=== PATIENT | male | born 1970 | race Caucasian/White ===

== ENCOUNTER 2016-11-24 10:35 | Emergency (ER) | payer OTHER ==
[~2016-11-24] VITALS: Ht 193 cm; Wt 242.6 kg
[~2016-11-24 10:35] MED LIST: ANTIFUNGAL15 G1 TP; ASCORBIC ACID100 MG PO; ASPIRIN325 MG PO; ASPIRIN81 M2 PO; ATORVASTATIN CA40 MG PO; BACLOFEN10 MG PO; BACTRIM,SEPT1 TABLET PO; CLEOCIN300 MG PO; CYMBALTA60 MG PO; DAILY VALUE1 EACH PO; DAILY VITE1 EAC1 PO; DOXYCYCLINE HY100 MG PO; ENDOCET 5-3251 EACH PO; FENOFIBRATE134 M1 PO; FLORASTOR250 MG PO; GABAPENTIN600 MG PO; GLUCOMETER MC; HYZAAR 100-21 TABLET PO; INSULIN PUMP SCCONT; KEFLEX500 MG PO; KLONOPIN1 MG PO; LEVEMIR FL100 UNIT/1 SC; LEVEMIR100 UNIT/2 SC; LEVOFLOXACIN750 MG PO; LIPITOR40 MG PO; LISINOPRIL5 MG PO; LO-DOSE ASPIRIN81 M1 PO; LOPRESSOR25 MG PO; LOVAZA1 GM PO; MELOXICAM7.5 MG PO; METOPROLOL TART25 MG PO; MOBIC15 MG PO; MOBIC7.5 MG PO; MOTRIN600 MG PO; MOTRIN800 MG PO; NEURONTIN300 MG PO; NEURONTIN600 MG PO; NORCO 5/3251 TABLET PO; NORVASC5 MG PO; NOVOLOG 10100 UNITS/ SC; NOVOLOG PE100 UNITS/ SC; NYSTATIN15 GM TP; OMEPRAZOLE40 M1 PO; PERCOCET 7.5-51 EACH; PRINIVIL5 MG PO; REQUIP1 MG PO; REQUIP2 MG PO; TOPAMAX100 MG PO; TRICOR145 MG PO; ULTRAM50 MG PO; VIBRAMYCIN100 MG PO; VICODIN 5-5001 EACH PO; VICODIN,LORT1 TABLET PO; ZESTRIL,PRINIVI10 MG PO; ZESTRIL40 MG PO; [UNRECOGNIZED DRUG - SUPPLY] MC
[2016-11-24 12:02] LABS: EOSINOPHIL (%) 1.9 % (0-5); EOSINOPHIL COUNT 0.1 K/uL (0-0.3); HEMATOCRIT 44.4 % (38.0-50.0); IMMATURE GRANULOCYTE (%) 0.2 % (0.0-0.7); IMMATURE GRANULOCYTE COUNT 0.1 K/uL; LYMPHOCYTE COUNT 1.2 K/uL (1.0-2.8); MCH 28.4 PG (29.0-34.0); MCV 83.6 FL (86-99); MEAN PLAT.VOLUME 10.8 uM^3 (9.0-12.4); MONOCYTE COUNT 0.3 K/uL (0-0.8); NEUTROPHIL (%) 66.2 % (45-76); NEUTROPHIL COUNT 3.2 K/uL (1.8-6.4); PLATELET COUNT 191 K/uL (156-360); RBC DIS.WIDTH-CV 13.7 % (11.8-14.6); RED BLOOD COUNT 5.31 M/uL (4.00-5.50); WHITE BLOOD COUNT 4.9 K/uL (4.1-10.2)
[2016-11-24 12:16] LABS: CHLORIDE 101 mEq/L (99-109); POTASSIUM 4.3 mEq/L (3.7-5.4); SODIUM 138 mEq/L (136-147)
[2016-11-24 12:19] LABS: GLUCOSE 278 mg/dL (70-99)
[2016-11-24 12:20] LABS: ANION GAP 10 MEQ/L (2-14); TOTAL BILIRUBIN 0.6 mg/dL (0.0-1.0)
[2016-11-24 12:22] LABS: ALKALINE PHOSPHATASE 68 IU/L (3-129); GFR ESTIMATE (CALCULATED) > 59 mL/min/
[2016-11-24 12:23] LABS: UREA NITROGEN (BUN) 16 mg/dL (9-23)
[2016-11-24 19:17] VITALS: BP 120/84
== END 2016-11-24 19:28 | disposition home or self-care (01) ==
LOC: EME 10:35
PROVIDERS: Physician Assistant
DX: L03.311 Cellulitis of abdominal wall (principal); E11.65 Type 2 diabetes mellitus with hyperglycemia; Z96.41 Presence of insulin pump (external) (internal); I10 Essential (primary) hypertension; K21.9 Gastro-esophageal reflux disease without esophagitis; Z98.1 Arthrodesis status; Z86.14 Personal history of Methicillin resistant Staphylococcus aureus infection; Z79.82 Long term (current) use of aspirin
CPT/HCPCS: 76705; 80053; 83605; 85025; 87040; 87801; 99281; 99285; J3370; J7120

== ENCOUNTER 2017-05-26 09:29 | Inpatient (IN) | payer OTHER ==
[~2017-05-26] VITALS: Ht 190.5 cm; Wt 256.0 kg
[2017-05-26] MEDS ORDERED: GABAPENTIN800 MG PO (10:18)
[2017-05-26] MEDS ORDERED: ATORVASTATIN CA80 MG PO (10:18)
[2017-05-26] MEDS ORDERED: MIRAPEX0.5 MG PO (10:19)
[2017-05-26] MEDS ORDERED: BACTRIM,SEPT1 TABLET PO (10:20)
[2017-05-26] MEDS ORDERED: SPIRONOLACTONE25 MG PO (10:20)
[2017-05-26] MEDS ORDERED: INSULIN PUMP MC (10:28)
[2017-05-26 11:09] LABS: HEMATOCRIT 46.1 % (38.0-50.0); MCH 27.9 PG (29.0-34.0); MCHC 32.5 G/DL (30.0-36.0); MCV 85.7 FL (86-99); MEAN PLAT.VOLUME 11.4 uM^3 (9.0-12.4); PLATELET COUNT 191 K/uL (156-360); RBC DIS.WIDTH-CV 14.4 % (11.8-14.6); RBC DIS.WIDTH-SD 44.5 % (39-53); RED BLOOD COUNT 5.38 M/uL (4.00-5.50); WHITE BLOOD COUNT 5.8 K/uL (4.1-10.2)
[2017-05-26 11:12] LABS: CHLORIDE 98 mEq/L (99-109); POTASSIUM 4.1 mEq/L (3.7-5.4); SODIUM 134 mEq/L (136-147)
[2017-05-26 11:14] LABS: GLUCOSE 357 mg/dL (70-99)
[2017-05-26 11:15] LABS: ANION GAP 12 MEQ/L (2-14)
[2017-05-26 11:18] LABS: GFR ESTIMATE (CALCULATED) > 59 mL/min/
[2017-05-26 11:19] LABS: UREA NITROGEN (BUN) 13 mg/dL (9-23)
[2017-05-26] MEDS ORDERED: PROVENTIL HFA6.7 GM IH (13:35)
[2017-05-26] MEDS ORDERED: INSULIN PUMP SC (13:40)
[2017-05-26] MEDS ORDERED: OMEPRAZOLE40 M1 PO (13:41)
[2017-05-26] MEDS ORDERED: KENALOG,ARISTOC80 GM TP (13:45)
[2017-05-26] MEDS ORDERED: HUMULIN R500 UNITS/ SC (13:48)
[2017-05-26 14:40] VITALS: BP 125/77
[2017-05-26 16:30] LABS: POINT-OF-CARE METER ID UU14174225
[2017-05-26 19:50] VITALS: BP 137/87
[2017-05-26 21:11] LABS: POINT-OF-CARE METER ID UU13113717; POINT-OF-CARE USER ID 610211320
[2017-05-26 23:46] VITALS: BP 112/53
[2017-05-27 03:28] VITALS: BP 137/78
[2017-05-27 06:46] LABS: ANION GAP 8 MEQ/L (2-14); CHLORIDE 97 MEQ/L (99-109); GFR ESTIMATE (CALCULATED) > 59 mL/min/; GLUCOSE 219 mg/dL (70-99); POTASSIUM 4.1 MEQ/L (3.7-5.4); SAMPLE HEMOLYSIS CHECK 0; SAMPLE ICTERIC CHECK 0; SAMPLE LIPEMIA CHECK 0; SODIUM 135 MEQ/L (136-147); UREA NITROGEN (BUN) 12 mg/dL (9-23)
[2017-05-27 06:56] LABS: HEMATOCRIT 47.3 % (38.0-50.0); MCH 28.6 PG (29.0-34.0); MCHC 33.6 G/DL (30.0-36.0); MCV 85.2 FL (86-99); RBC DIS.WIDTH-CV 14.6 % (11.8-14.6); RBC DIS.WIDTH-SD 44.9 % (39-53); RED BLOOD COUNT 5.55 M/uL (4.00-5.50); WHITE BLOOD COUNT 5.2 K/uL (4.1-10.2)
[2017-05-27 07:49] LABS: MEAN PLAT.VOLUME 12.1 uM^3 (9.0-12.4); PLAT.SUFFICIENCY ADEQUATE; PLATELET COUNT 140 K/uL (156-360)
[2017-05-27 07:56] VITALS: BP 142/76
[2017-05-27 12:08] VITALS: BP 124/74
[2017-05-27 15:05] LABS: METH RESISTANT S AUREUS PCR NEGATIVE (NEGATIVE)
[2017-05-27 15:06] LABS: PROBE CHECK PASS; SPECIMEN PROCESSING CONTROL PASS
[2017-05-27 16:09] VITALS: BP 125/66
[2017-05-27 20:41] VITALS: BP 110/73
[2017-05-27 21:51] LABS: POINT-OF-CARE METER ID UU14174225
[2017-05-27 23:51] VITALS: BP 146/96
[2017-05-28 03:42] VITALS: BP 120/86
[2017-05-28 06:48] LABS: HEMATOCRIT 45.6 % (38.0-50.0); MCH 28.8 PG (29.0-34.0); MCHC 33.1 G/DL (30.0-36.0); MCV 86.9 FL (86-99); PLATELET COUNT 164 K/uL (156-360); RBC DIS.WIDTH-CV 14.6 % (11.8-14.6); RED BLOOD COUNT 5.25 M/uL (4.00-5.50); WHITE BLOOD COUNT 5.5 K/uL (4.1-10.2)
[2017-05-28 07:06] LABS: ANION GAP 11 MEQ/L (2-14); CHLORIDE 99 MEQ/L (99-109); POTASSIUM 3.8 MEQ/L (3.7-5.4); SAMPLE HEMOLYSIS CHECK 0; SAMPLE ICTERIC CHECK 0; SAMPLE LIPEMIA CHECK 0; SODIUM 137 MEQ/L (136-147)
[2017-05-28 07:20] LABS: GFR ESTIMATE (CALCULATED) > 59 mL/min/; UREA NITROGEN (BUN) 11 mg/dL (9-23)
[2017-05-28 07:23] LABS: GLUCOSE 108 mg/dL (70-99)
[2017-05-28 08:47] VITALS: BP 153/87
[2017-05-28 13:44] VITALS: BP 146/80
[2017-05-28 16:30] VITALS: BP 118/81
[2017-05-28 22:11] LABS: POINT-OF-CARE METER ID UU14174225
[2017-05-28 23:38] VITALS: BP 128/93
[2017-05-29 08:00] VITALS: BP 139/80
[2017-05-29 08:00] LABS: POINT-OF-CARE METER ID UU14174225
[2017-05-29 11:59] LABS: POINT-OF-CARE METER ID UU14174225
[2017-05-29 15:35] VITALS: BP 117/67
[2017-05-29] MEDS ORDERED: FUROSEMIDE40 MG PO (15:49)
[2017-05-30 01:00] VITALS: BP 126/78
[2017-05-30 08:08] VITALS: BP 130/91
[2017-05-30 08:53] LABS: POINT-OF-CARE METER ID UU14174225
[2017-05-30] MEDS ORDERED: CEPHALEXIN500 MG PO (12:38)
[2017-05-30 15:58] VITALS: BP 118/67
[2017-05-30 23:40] VITALS: BP 143/65
[2017-05-31 06:18] LABS: HEMATOCRIT 49.2 % (38.0-50.0); MCH 27.3 PG (29.0-34.0); MCHC 31.5 G/DL (30.0-36.0); MCV 86.8 FL (86-99); MEAN PLAT.VOLUME 10.6 uM^3 (9.0-12.4); PLATELET COUNT 188 K/uL (156-360); RBC DIS.WIDTH-CV 14.6 % (11.8-14.6); RBC DIS.WIDTH-SD 46.4 % (39-53); RED BLOOD COUNT 5.67 M/uL (4.00-5.50); WHITE BLOOD COUNT 5.2 K/uL (4.1-10.2)
[2017-05-31 07:56] LABS: ANION GAP 8 MEQ/L (2-14); CHLORIDE 98 MEQ/L (99-109); GFR ESTIMATE (CALCULATED) > 59 mL/min/; POTASSIUM 3.7 MEQ/L (3.7-5.4); SAMPLE HEMOLYSIS CHECK 0; SAMPLE ICTERIC CHECK 0; SAMPLE LIPEMIA CHECK 0; SODIUM 140 MEQ/L (136-147); UREA NITROGEN (BUN) 13 mg/dL (9-23)
[2017-05-31 07:58] LABS: GLUCOSE 72 mg/dL (70-99)
[2017-05-31 08:42] VITALS: BP 152/95
== END 2017-05-31 10:56 | disposition home health service (06) | DRG 603 ==
LOC: EME 09:29 → 5SOUTH 13:25 → EDOF 13:25 → ENRESERV 13:39 → 5SOUTH 15:58
PROVIDERS: Hospitalist; Internal Medicine; Nurse Practitioner Family
PROC: 5A09357 Assistance with Respiratory Ventilation, Less than 24 Consecutive Hours, Continuous Positive Airway Pressure (ICD-10-PCS; principal; 2017-05-26)
DX: L03.115 Cellulitis of right lower limb (principal); Z68.45 Body mass index [BMI] 70 or greater, adult; I42.9 Cardiomyopathy, unspecified; L97.811 Non-pressure chronic ulcer of other part of right lower leg limited to breakdown of skin; E87.2 Acidosis; L03.116 Cellulitis of left lower limb; E66.01 Morbid (severe) obesity due to excess calories; F17.220 Nicotine dependence, chewing tobacco, uncomplicated; Z96.41 Presence of insulin pump (external) (internal); K21.9 Gastro-esophageal reflux disease without esophagitis; E11.65 Type 2 diabetes mellitus with hyperglycemia; I89.0 Lymphedema, not elsewhere classified; D75.1 Secondary polycythemia; E11.622 Type 2 diabetes mellitus with other skin ulcer; I10 Essential (primary) hypertension; E78.5 Hyperlipidemia, unspecified; G47.33 Obstructive sleep apnea (adult) (pediatric); Z89.421 Acquired absence of other right toe(s); Z79.82 Long term (current) use of aspirin; Z79.4 Long term (current) use of insulin; Z86.718 Personal history of other venous thrombosis and embolism; Z91.041 Radiographic dye allergy status; Z83.3 Family history of diabetes mellitus; Z82.49 Family history of ischemic heart disease and other diseases of the circulatory system
CPT/HCPCS: 73630; 80048; 82948; 83605; 85027; 87040; 87641; 93306; 93970; 94660; 94799; 99202; 99281; 99284; A6212; J0696; J1644; J1940; J2270; J3370; J7030; J7040; J7050

== ENCOUNTER 2017-08-19 15:48 | Inpatient (IN) | payer OTHER ==
[~2017-08-19] VITALS: Ht 182.9 cm; Wt 255.0 kg
[~2017-08-19 15:48] MED LIST changes: +ATORVASTATIN CA80 MG PO; +CEPHALEXIN500 MG PO; +FUROSEMIDE40 MG PO; +GABAPENTIN800 MG PO; +HUMULIN R500 UNITS/ SC; +INSULIN PUMP MC; +INSULIN PUMP SC; +KENALOG,ARISTOC80 GM TP; +MIRAPEX0.5 MG PO; +PROVENTIL HFA6.7 GM IH; +SPIRONOLACTONE25 MG PO
[2017-08-19] MEDS ORDERED: AMOX TR-K CLV1 EAC4 PO (16:51)
[2017-08-19] MEDS ORDERED: OXYCODONE-APAP1 EACH PO (17:00)
[2017-08-19] MEDS ORDERED: KENALOG,ARISTOC80 G1 TP (17:02)
[2017-08-19 17:21] LABS: EOSINOPHIL (%) 1.3 % (0-5); EOSINOPHIL COUNT 0.1 K/uL (0-0.3); HEMATOCRIT 43.5 % (38.0-50.0); IMMATURE GRANULOCYTE (%) 0.2 % (0.0-0.7); INSTRUMENT ABS NEUTROPHIL CT 6.1 K/uL; LYMPHOCYTE COUNT 1.6 K/uL (1.0-2.8); MCH 27.1 PG (29.0-34.0); MCHC 31.7 G/DL (30.0-36.0); MCV 85.3 FL (86-99); MONOCYTE (%) 6.4 % (3-12); MONOCYTE COUNT 0.5 K/uL (0-0.8); NEUTROPHIL (%) 73.2 % (45-76); NEUTROPHIL COUNT 6.1 K/uL (1.8-6.4); PLATELET COUNT 211 K/uL (156-360); RBC DIS.WIDTH-CV 14.4 % (11.8-14.6); RBC DIS.WIDTH-SD 44.9 % (39-53); WHITE BLOOD COUNT 8.4 K/uL (4.1-10.2)
[2017-08-19 17:30] LABS: CHLORIDE 99 mEq/L (99-109); POTASSIUM 4.3 mEq/L (3.7-5.4); SODIUM 135 mEq/L (136-147)
[2017-08-19 17:31] LABS: GLUCOSE 237 mg/dL (70-99)
[2017-08-19 17:33] LABS: ANION GAP 13 MEQ/L (2-14)
[2017-08-19 17:35] LABS: GFR ESTIMATE (CALCULATED) > 59 mL/min/
[2017-08-19 17:36] LABS: UREA NITROGEN (BUN) 19 mg/dL (9-23)
[2017-08-19] MEDS ORDERED: COZAAR100 MG PO (19:16)
[2017-08-19] MEDS ORDERED: MIRAPEX1 MG PO (19:17)
[2017-08-19] MEDS ORDERED: TYLENOL EXTRA500 MG PO (19:20)
[2017-08-19] MEDS ORDERED: ADVIL200 MG PO (19:20)
[2017-08-19] MEDS ORDERED: ALEVE220 MG PO (19:20)
[2017-08-19] MEDS ORDERED: ASCORBIC ACID500 M3 PO (19:20)
[2017-08-19] MEDS ORDERED: FLONASE16 G1 BOTH NARES (19:21)
[2017-08-19 22:22] VITALS: BP 138/82
[2017-08-19 23:27] VITALS: BP 147/83
[2017-08-20 00:16] LABS: POINT-OF-CARE METER ID UU14208753
[2017-08-20 03:34] VITALS: BP 132/79
[2017-08-20 06:26] LABS: HEMATOCRIT 43.1 % (38.0-50.0); MCH 26.5 PG (29.0-34.0); MCHC 31.1 G/DL (30.0-36.0); MCV 85.2 FL (86-99); MEAN PLAT.VOLUME 10.2 uM^3 (9.0-12.4); PLATELET COUNT 202 K/uL (156-360); RBC DIS.WIDTH-CV 14.7 % (11.8-14.6); RBC DIS.WIDTH-SD 45.3 % (39-53); RED BLOOD COUNT 5.06 M/uL (4.00-5.50); WHITE BLOOD COUNT 6.4 K/uL (4.1-10.2)
[2017-08-20 06:28] LABS: POINT-OF-CARE METER ID UU14117124
[2017-08-20 07:09] LABS: ANION GAP 9 MEQ/L (2-14); CHLORIDE 100 MEQ/L (99-109); GFR ESTIMATE (CALCULATED) > 59 mL/min/; GLUCOSE 156 mg/dL (70-99); POTASSIUM 3.9 MEQ/L (3.7-5.4); SAMPLE HEMOLYSIS CHECK 0; SAMPLE ICTERIC CHECK 0; SAMPLE LIPEMIA CHECK 0; SODIUM 138 MEQ/L (136-147); UREA NITROGEN (BUN) 20 mg/dL (9-23)
[2017-08-20 08:31] VITALS: BP 112/71
[2017-08-20 11:59] LABS: POINT-OF-CARE METER ID UU14117124
[2017-08-20 13:55] VITALS: BP 125/58
[2017-08-20 16:32] VITALS: BP 108/70
[2017-08-20 16:50] LABS: POINT-OF-CARE METER ID UU14188577
[2017-08-20 17:04] LABS: Estimated Average Glucose 249 mg/dL (70-123); HEMOGLOBIN A1c (GLYCOHEMOGLOB) 10.3 % HGB (Below 5.7)
[2017-08-20 22:02] LABS: POINT-OF-CARE METER ID UU14188577
[2017-08-21 00:10] VITALS: BP 142/86
[2017-08-21 06:05] LABS: HEMATOCRIT 43.2 % (38.0-50.0); MCH 26.4 PG (29.0-34.0); MCHC 30.8 G/DL (30.0-36.0); MCV 85.7 FL (86-99); MEAN PLAT.VOLUME 9.9 uM^3 (9.0-12.4); PLATELET COUNT 194 K/uL (156-360); RBC DIS.WIDTH-CV 14.6 % (11.8-14.6); RBC DIS.WIDTH-SD 44.9 % (39-53); RED BLOOD COUNT 5.04 M/uL (4.00-5.50); WHITE BLOOD COUNT 6.7 K/uL (4.1-10.2)
[2017-08-21 07:00] LABS: POINT-OF-CARE METER ID UU14117124
[2017-08-21 07:49] VITALS: BP 138/91
[2017-08-21 09:49] LABS: POINT-OF-CARE METER ID UU14117124
[2017-08-21 12:21] LABS: POINT-OF-CARE METER ID UU14117124
[2017-08-21 14:31] LABS: POINT-OF-CARE METER ID UU14117124
[2017-08-21 15:49] VITALS: BP 118/71
[2017-08-21 16:21] LABS: POINT-OF-CARE METER ID UU14117124
[2017-08-21 21:58] LABS: POINT-OF-CARE METER ID UU14117124
[2017-08-21 23:31] VITALS: BP 142/79
[2017-08-22 04:10] LABS: POINT-OF-CARE METER ID UU14188577
[2017-08-22 04:42] LABS: POINT-OF-CARE METER ID UU14188577
[2017-08-22 05:09] LABS: POINT-OF-CARE METER ID UU14188577
[2017-08-22 06:21] LABS: POINT-OF-CARE METER ID UU14188577
[2017-08-22 08:38] VITALS: BP 138/81
[2017-08-22] MEDS ORDERED: KEFLEX500 MG PO (10:27)
[2017-08-22 12:12] LABS: POINT-OF-CARE METER ID UU14149397
[2017-08-22 13:09] LABS: POINT-OF-CARE METER ID UU14208753
[2017-08-22 14:11] LABS: POINT-OF-CARE METER ID UU14208753
== END 2017-08-22 14:42 | disposition home or self-care (01) | DRG 603 ==
LOC: EME 15:48 → 3EAST 20:19 → EDOF 20:19 → ENRESERV 20:23 → 3EAST 21:58
PROVIDERS: Hospitalist; Internal Medicine; Physician Assistant
DX: L03.115 Cellulitis of right lower limb (principal); L97.811 Non-pressure chronic ulcer of other part of right lower leg limited to breakdown of skin; Z68.45 Body mass index [BMI] 70 or greater, adult; L03.116 Cellulitis of left lower limb; E66.01 Morbid (severe) obesity due to excess calories; E11.621 Type 2 diabetes mellitus with foot ulcer; G47.33 Obstructive sleep apnea (adult) (pediatric); I11.0 Hypertensive heart disease with heart failure; I50.9 Heart failure, unspecified; E11.65 Type 2 diabetes mellitus with hyperglycemia; L97.521 Non-pressure chronic ulcer of other part of left foot limited to breakdown of skin; E78.5 Hyperlipidemia, unspecified; I87.2 Venous insufficiency (chronic) (peripheral); I89.0 Lymphedema, not elsewhere classified; K21.9 Gastro-esophageal reflux disease without esophagitis; F17.220 Nicotine dependence, chewing tobacco, uncomplicated; Z79.4 Long term (current) use of insulin; Z96.41 Presence of insulin pump (external) (internal); Z79.82 Long term (current) use of aspirin; Z89.421 Acquired absence of other right toe(s); Z91.041 Radiographic dye allergy status; Z79.51 Long term (current) use of inhaled steroids; Z98.1 Arthrodesis status; Z83.3 Family history of diabetes mellitus; Z82.49 Family history of ischemic heart disease and other diseases of the circulatory system
CPT/HCPCS: 80048; 82948; 83036; 83605; 85025; 85027; 87040; 87070; 87075; 87205; 93970; 99202; 99281; 99285; J0696; J1650; J3010; J7030

== ENCOUNTER 2017-09-09 10:43 | Inpatient (IN) | payer OTHER ==
[~2017-09-09] VITALS: Ht 190.5 cm; Wt 300.0 kg
[~2017-09-09 10:43] MED LIST changes: +ADVIL200 MG PO; +ALEVE220 MG PO; +AMOX TR-K CLV1 EAC4 PO; +ASCORBIC ACID500 M3 PO; +COZAAR100 MG PO; +FLONASE16 G1 BOTH NARES; -INSULIN PUMP SC; +KENALOG,ARISTOC80 G1 TP; +MIRAPEX1 MG PO; +OXYCODONE-APAP1 EACH PO; +TYLENOL EXTRA500 MG PO
[2017-09-09 11:49] LABS: HEMATOCRIT 42.7 % (38.0-50.0); MCH 26.7 PG (29.0-34.0); MCHC 31.1 G/DL (30.0-36.0); MCV 85.6 FL (86-99); MEAN PLAT.VOLUME 10.5 uM^3 (9.0-12.4); PLATELET COUNT 173 K/uL (156-360); RBC DIS.WIDTH-CV 14.6 % (11.8-14.6); RBC DIS.WIDTH-SD 45.5 % (39-53); RED BLOOD COUNT 4.99 M/uL (4.00-5.50)
[2017-09-09 11:59] LABS: CHLORIDE 99 mEq/L (99-109); POTASSIUM 4.2 mEq/L (3.7-5.4); SODIUM 136 mEq/L (136-147)
[2017-09-09 12:01] LABS: GLUCOSE 260 mg/dL (70-99)
[2017-09-09 12:03] LABS: ANION GAP 11 MEQ/L (2-14); TOTAL BILIRUBIN 0.5 mg/dL (0.0-1.0)
[2017-09-09 12:05] LABS: ALKALINE PHOSPHATASE 71 IU/L (3-129); GFR ESTIMATE (CALCULATED) > 59 mL/min/ (58.99-99999)
[2017-09-09 12:06] LABS: UREA NITROGEN (BUN) 13 mg/dL (9-23)
[2017-09-09 14:54] LABS: INTER. NORMALIZED RATIO 1.1; PROTHROMBIN TIME 12.5 SEC (10.2-12.9)
[2017-09-09] MEDS ORDERED: METOPROLOL SUCC50 MG PO (17:07)
[2017-09-09 22:02] LABS: POINT-OF-CARE METER ID UU13113717
[2017-09-10 00:05] VITALS: BP 140/82
[2017-09-10 03:53] VITALS: BP 147/86
[2017-09-10 06:49] LABS: EOSINOPHIL (%) 2.3 % (0-5); EOSINOPHIL COUNT 0.1 K/uL (0-0.3); HEMATOCRIT 43.3 % (38.0-50.0); IMMATURE GRANULOCYTE (%) 0.3 % (0.0-0.7); INSTRUMENT ABS NEUTROPHIL CT 4.1 K/uL; LYMPHOCYTE COUNT 1.2 K/uL (1.0-2.8); MCH 25.7 PG (29.0-34.0); MCHC 29.8 G/DL (30.0-36.0); MCV 86.4 FL (86-99); MEAN PLAT.VOLUME 9.9 uM^3 (9.0-12.4); MONOCYTE (%) 8.1 % (3-12); MONOCYTE COUNT 0.5 K/uL (0-0.8); NEUTROPHIL (%) 68.2 % (45-76); NEUTROPHIL COUNT 4.1 K/uL (1.8-6.4); PLATELET COUNT 197 K/uL (156-360); RBC DIS.WIDTH-CV 14.8 % (11.8-14.6); RBC DIS.WIDTH-SD 46.7 % (39-53); RED BLOOD COUNT 5.01 M/uL (4.00-5.50)
[2017-09-10 07:41] LABS: ANION GAP 6 MEQ/L (2-14); CHLORIDE 101 MEQ/L (99-109); GFR ESTIMATE (CALCULATED) > 59 mL/min/ (58.99-99999); POTASSIUM 4.5 MEQ/L (3.7-5.4); SAMPLE HEMOLYSIS CHECK 0; SAMPLE ICTERIC CHECK 0; SAMPLE LIPEMIA CHECK 0; SODIUM 142 MEQ/L (136-147); UREA NITROGEN (BUN) 13 mg/dL (9-23)
[2017-09-10 07:45] LABS: GLUCOSE 108 mg/dL (70-99)
[2017-09-10 07:47] VITALS: BP 151/87
[2017-09-10 07:54] LABS: POINT-OF-CARE METER ID UU13113717
[2017-09-10 11:14] LABS: POINT-OF-CARE METER ID UU13113717
[2017-09-10 11:47] VITALS: BP 146/92
[2017-09-10 16:11] VITALS: BP 112/65
[2017-09-10 17:39] LABS: POINT-OF-CARE METER ID UU13113717
[2017-09-10 19:38] VITALS: BP 113/64
[2017-09-10 20:40] LABS: POINT-OF-CARE METER ID UU13113717
[2017-09-11 00:28] VITALS: BP 125/73
[2017-09-11 03:33] VITALS: BP 138/77
[2017-09-11 06:41] LABS: HEMATOCRIT 43.2 % (38.0-50.0); MCH 26.1 PG (29.0-34.0); MCHC 30.1 G/DL (30.0-36.0); MCV 86.6 FL (86-99); MEAN PLAT.VOLUME 10.3 uM^3 (9.0-12.4); PLATELET COUNT 201 K/uL (156-360); RBC DIS.WIDTH-CV 14.8 % (11.8-14.6); RBC DIS.WIDTH-SD 47.3 % (39-53); RED BLOOD COUNT 4.99 M/uL (4.00-5.50); WHITE BLOOD COUNT 6.4 K/uL (4.1-10.2)
[2017-09-11 06:55] LABS: ANION GAP 5 MEQ/L (2-14); CHLORIDE 100 MEQ/L (99-109); GFR ESTIMATE (CALCULATED) > 59 mL/min/ (58.99-99999); GLUCOSE 117 mg/dL (70-99); POTASSIUM 4.3 MEQ/L (3.7-5.4); SAMPLE HEMOLYSIS CHECK 0; SAMPLE ICTERIC CHECK 0; SAMPLE LIPEMIA CHECK 0; SODIUM 138 MEQ/L (136-147); UREA NITROGEN (BUN) 16 mg/dL (9-23)
[2017-09-11 08:14] VITALS: BP 123/77
[2017-09-11 12:08] LABS: POINT-OF-CARE METER ID UU13113717
[2017-09-11 12:09] VITALS: BP 112/59
[2017-09-11 15:40] VITALS: BP 110/59
[2017-09-11 17:07] LABS: POINT-OF-CARE METER ID UU13113717
[2017-09-11 20:23] VITALS: BP 147/84
[2017-09-11 21:31] LABS: POINT-OF-CARE METER ID UU14302473
[2017-09-12] VITALS (7 sets, daily range): BP systolic 110–136; BP diastolic 59–78
[2017-09-12 07:58] LABS: POINT-OF-CARE METER ID UU14174225
[2017-09-12] MEDS ORDERED: DYNAPEN500 MG PO ×2 (10:28→10:30)
[2017-09-12] MEDS ORDERED: FLORASTOR250 MG PO (10:31)
[2017-09-12 12:49] LABS: POINT-OF-CARE METER ID UU14302514
[2017-09-12 17:19] LABS: POINT-OF-CARE METER ID UU14302513
[2017-09-12 21:49] LABS: POINT-OF-CARE METER ID UU14302513
[2017-09-13 04:27] VITALS: BP 145/77
[2017-09-13 07:55] VITALS: BP 128/79
[2017-09-13 11:03] LABS: POINT-OF-CARE METER ID UU13113717
== END 2017-09-13 16:10 | disposition home health service (06) | DRG 603 ==
LOC: EME 10:43 → EDOF 16:39 → 5SOUTH 16:39 → ENRESERV 16:44 → 5SOUTH 18:28
PROVIDERS: Physician Assistant Medical; Student in an Organized Health Care Education/Training Program
DX: L03.115 Cellulitis of right lower limb (principal); E11.622 Type 2 diabetes mellitus with other skin ulcer; L03.116 Cellulitis of left lower limb; E11.621 Type 2 diabetes mellitus with foot ulcer; L97.511 Non-pressure chronic ulcer of other part of right foot limited to breakdown of skin; J44.9 Chronic obstructive pulmonary disease, unspecified; I11.0 Hypertensive heart disease with heart failure; E66.01 Morbid (severe) obesity due to excess calories; E11.65 Type 2 diabetes mellitus with hyperglycemia; Z96.41 Presence of insulin pump (external) (internal); E78.5 Hyperlipidemia, unspecified; Z68.45 Body mass index [BMI] 70 or greater, adult; G47.33 Obstructive sleep apnea (adult) (pediatric); I50.9 Heart failure, unspecified; L97.519 Non-pressure chronic ulcer of other part of right foot with unspecified severity; L98.421 Non-pressure chronic ulcer of back limited to breakdown of skin; L97.811 Non-pressure chronic ulcer of other part of right lower leg limited to breakdown of skin; I89.0 Lymphedema, not elsewhere classified; G89.29 Other chronic pain; H53.2 Diplopia; Z98.1 Arthrodesis status; Z79.82 Long term (current) use of aspirin; Z79.4 Long term (current) use of insulin; Z86.718 Personal history of other venous thrombosis and embolism; I87.8 Other specified disorders of veins; K21.9 Gastro-esophageal reflux disease without esophagitis; Z72.0 Tobacco use; Z79.899 Other long term (current) drug therapy; Z82.49 Family history of ischemic heart disease and other diseases of the circulatory system; Z83.3 Family history of diabetes mellitus
CPT/HCPCS: 80048; 80053; 80202; 81003; 82948; 85025; 85027; 85610; 87040; 93971; 94660; 94799; 99202; 99281; 99284; J1650; J2543; J3370; J7050

== ENCOUNTER 2017-10-21 09:09 | Inpatient (IN) | payer OTHER ==
[~2017-10-21] VITALS: Ht 190.5 cm; Wt 258.5 kg
[~2017-10-21 09:09] MED LIST changes: +DYNAPEN500 MG PO; +METOPROLOL SUCC50 MG PO
[2017-10-21 10:04] LABS: BASOPHIL (%) 0.3 % (0-1); EOSINOPHIL (%) 0.7 % (0-5); EOSINOPHIL COUNT 0.1 K/uL (0-0.3); IMMATURE GRANULOCYTE (%) 0.5 % (0.0-0.7); LYMPHOCYTE (%) 8.6 % (15-42); LYMPHOCYTE COUNT 0.9 K/uL (1.0-2.8); MCH 26.3 PG (29.0-34.0); MCV 84.8 FL (86-99); MONOCYTE (%) 5.7 % (3-12); MONOCYTE COUNT 0.6 K/uL (0-0.8); NEUTROPHIL (%) 84.2 % (45-76); PLATELET COUNT 238 K/uL (156-360); RBC DIS.WIDTH-CV 14.9 % (11.8-14.6); RBC DIS.WIDTH-SD 46.9 % (39-53); RED BLOOD COUNT 4.95 M/uL (4.00-5.50); WHITE BLOOD COUNT 10.7 K/uL (4.1-10.2)
[2017-10-21 10:10] LABS: INTER. NORMALIZED RATIO 1.2
[2017-10-21 10:12] LABS: PTT 25.4 SEC (25-37)
[2017-10-21 10:15] LABS: ALBUMIN 3.8 g/dL (3.2-4.8); CHLORIDE 94 mEq/L (99-109); POTASSIUM 4.3 mEq/L (3.7-5.4); SODIUM 135 mEq/L (136-147)
[2017-10-21 10:17] LABS: GLUCOSE 284 mg/dL (70-99); TOTAL PROTEIN 8.4 g/dL (6.4-8.3)
[2017-10-21 10:19] LABS: TOTAL BILIRUBIN 0.6 mg/dL (0.0-1.0)
[2017-10-21 10:21] LABS: ALKALINE PHOSPHATASE 83 IU/L (3-129); CREATININE 0.9 mg/dL (0.6-1.3); GFR ESTIMATE (CALCULATED) > 59 mL/min/ (58.99-99999)
[2017-10-21 10:22] LABS: UREA NITROGEN (BUN) 17 mg/dL (9-23)
[2017-10-21 10:23] LABS: AST (GOT) 19 IU/L (2-34)
[2017-10-21 10:24] LABS: ALT (GPT) 19 IU/L (3-49)
[2017-10-21 10:25] LABS: TROP-I INTERPRETATION NEGATIVE; TROPONIN-I 0.03 ng/mL (0.0-0.30)
[2017-10-21] MEDS ORDERED: LASIX80 MG PO (11:19)
[2017-10-21] MEDS ORDERED: IRON325 M1 PO (11:21)
[2017-10-21] MEDS ORDERED: MULTI VITAMIN1 EACH PO (11:21)
[2017-10-21] MEDS ORDERED: CYANOCOBALAM1000 MCG PO (11:21)
[2017-10-21 13:29] LABS: BASE EXCESS 5.3 mEq/L (-3 to +3); BICARBONATE 31.9 mEq/L (22-26); CARBOXY HGB 2.2 % (0-5); METHEMOGLOBIN 1.1 % (0-1.5); PCO2 54 mm Hg (35-45); PO2 69 mm Hg (80-100); SITE RR; pH 7.38 (7.35-7.45)
[2017-10-21 13:30] LABS: COMMENTS - BLOOD GASES A+C+; DEVICE HF; O2 FLOW 13 L/MIN; TOTAL RESP RATE 22 resp/min
[2017-10-21 15:48] LABS: HEMOGLOBIN A1c (GLYCOHEMOGLOB) 9.5 % (Below 5.7)
[2017-10-21 16:18] LABS: APPEARANCE CLEAR ((CLEAR)); BILIRUBIN NEGATIVE; BLOOD NEGATIVE; COLOR YELLOW ((YELLOW)); GLUCOSE (STRIP) >=500; KETONES NEGATIVE; LEUKOCYTES NEGATIVE; NITRITE NEGATIVE; PROTEIN (STRIP) 100; SPECIFIC GRAVITY 1.018 (1.000-1.030); UROBILINOGEN 0.2 MG/DL (0.2-1.0)
[2017-10-21 16:22] LABS: BACTERIA NONE SEEN /HPF; EPITHELIAL CELLS RARE /HPF; MUCUS TRACE /LPF; RED BLOOD CELLS 0-5 /HPF (0-5); UCUL ADDED? NO; WHITE BLOOD CELLS 0-5 /HPF (0-5)
[2017-10-21 17:00] VITALS: BP 138/81
[2017-10-21 20:00] VITALS: BP 163/85
[2017-10-22] VITALS: BP 132/62
[2017-10-22 03:50] VITALS: BP 134/75
[2017-10-22 09:00] VITALS: BP 116/68
[2017-10-22 12:00] VITALS: BP 123/83
[2017-10-22 12:17] LABS: HEMATOCRIT 38.5 % (38.0-50.0); HEMOGLOBIN 11.4 G/DL (12.5-16.6); MCH 25.6 PG (29.0-34.0); MCHC 29.6 G/DL (30.0-36.0); MCV 86.3 FL (86-99); PLATELET COUNT 248 K/uL (156-360); RBC DIS.WIDTH-CV 15.4 % (11.8-14.6); RBC DIS.WIDTH-SD 48.8 % (39-53); RED BLOOD COUNT 4.46 M/uL (4.00-5.50); WHITE BLOOD COUNT 9.5 K/uL (4.1-10.2)
[2017-10-22 16:00] VITALS: BP 140/87
[2017-10-22 19:43] VITALS: BP 139/87
[2017-10-23] VITALS (7 sets, daily range): BP systolic 44–147; BP diastolic 65–92
[2017-10-24 03:51] VITALS: BP 108/60
[2017-10-24 08:54] VITALS: BP 134/78
[2017-10-24 11:39] VITALS: BP 134/85
[2017-10-24 11:49] LABS: BASE EXCESS 11.7 mEq/L (-3 to +3); CARBOXY HGB 2.2 % (0-5); METHEMOGLOBIN 1.5 % (0-1.5); pH 7.31 (7.35-7.45)
[2017-10-24 11:50] LABS: BICARBONATE 41.3 mEq/L (22-26); COMMENTS - BLOOD GASES +C; DEVICE HHFNC; FI02 70 %; O2 FLOW 40 L/MIN; PCO2 82 mm Hg (35-45); PO2 86 mm Hg (80-100); SITE RR +A; TOTAL RESP RATE 26 resp/min
[2017-10-24 16:12] VITALS: BP 132/78
[2017-10-24 16:52] LABS: BASE EXCESS 12.2 mEq/L (-3 to +3); BICARBONATE 40.7 mEq/L (22-26); CARBOXY HGB 2.4 % (0-5); METHEMOGLOBIN 1.4 % (0-1.5); pH 7.36 (7.35-7.45)
[2017-10-24 16:53] LABS: COMMENTS - BLOOD GASES +C; DEVICE CPAP; O2 FLOW 15 L/MIN; PCO2 72 mm Hg (35-45); PO2 56 mm Hg (80-100); SITE RR +A
[2017-10-24 16:54] LABS: CONTINUOUS POS AIRWAY PRESSURE 17 cm H2O; MECHANICAL RATE 18 resp/min
[2017-10-24 20:00] VITALS: BP 133/77
[2017-10-25] VITALS (7 sets, daily range): BP systolic 128–161; BP diastolic 69–100
[2017-10-25 09:04] LABS: HEMATOCRIT 41.1 % (38.0-50.0); HEMOGLOBIN 12.5 G/DL (12.5-16.6); MCH 25.9 PG (29.0-34.0); MCHC 30.4 G/DL (30.0-36.0); MCV 85.1 FL (86-99); PLATELET COUNT 214 K/uL (156-360); RBC DIS.WIDTH-CV 14.7 % (11.8-14.6); RBC DIS.WIDTH-SD 45.1 % (39-53); RED BLOOD COUNT 4.83 M/uL (4.00-5.50); WHITE BLOOD COUNT 7.1 K/uL (4.1-10.2)
[2017-10-25 09:35] LABS: CHLORIDE 93 MEQ/L (99-109); POTASSIUM 4.5 MEQ/L (3.7-5.4); SODIUM 136 MEQ/L (136-147)
[2017-10-25 09:41] LABS: CREATININE 0.6 MG/DL (0.6-1.3); GFR ESTIMATE (CALCULATED) > 59 mL/min/ (58.99-99999); GLUCOSE 235 mg/dL (70-99); UREA NITROGEN (BUN) 13 mg/dL (9-23)
[2017-10-25 16:00] LABS: BASE EXCESS 10.9 mEq/L (-3 to +3); BICARBONATE 38.5 mEq/L (22-26); CARBOXY HGB 2.5 % (0-5); METHEMOGLOBIN 1.6 % (0-1.5); PCO2 65 mm Hg (35-45); PO2 73 mm Hg (80-100); pH 7.38 (7.35-7.45)
[2017-10-25 16:01] LABS: COMMENTS - BLOOD GASES A+C+; DEVICE HHFNC; O2 FLOW 15 L/MIN; SITE RR
[2017-10-26 04:48] VITALS: BP 158/85
[2017-10-26 08:18] VITALS: BP 161/100
[2017-10-26] MEDS ORDERED: CEFTRIAXONE2 G1 IV (09:05)
[2017-10-26 11:08] VITALS: BP 132/95
== END 2017-10-26 15:18 | disposition home health service (06) | DRG 871 ==
LOC: EME 09:09 → 4EAST 10:35 → EDOF 10:35 → ENRESERV 10:49 → CANRESERV 11:08 → ENRESERV 11:08 → EDOF 13:21 → ENRESERV 13:23 → 4EAST 17:00
PROVIDERS: Emergency Medicine; Internal Medicine; Surgery
PROC: 5A09357 Assistance with Respiratory Ventilation, Less than 24 Consecutive Hours, Continuous Positive Airway Pressure (ICD-10-PCS; principal; 2017-10-21)
DX: A41.9 Sepsis, unspecified organism (principal); J96.21 Acute and chronic respiratory failure with hypoxia; J96.22 Acute and chronic respiratory failure with hypercapnia; L03.115 Cellulitis of right lower limb; L03.116 Cellulitis of left lower limb; L02.611 Cutaneous abscess of right foot; Z68.45 Body mass index [BMI] 70 or greater, adult; M86.9 Osteomyelitis, unspecified; L97.412 Non-pressure chronic ulcer of right heel and midfoot with fat layer exposed; L97.911 Non-pressure chronic ulcer of unspecified part of right lower leg limited to breakdown of skin; L97.921 Non-pressure chronic ulcer of unspecified part of left lower leg limited to breakdown of skin; E66.2 Morbid (severe) obesity with alveolar hypoventilation; K21.9 Gastro-esophageal reflux disease without esophagitis; E78.5 Hyperlipidemia, unspecified; F17.220 Nicotine dependence, chewing tobacco, uncomplicated; G25.81 Restless legs syndrome; I11.0 Hypertensive heart disease with heart failure; I50.9 Heart failure, unspecified; I87.2 Venous insufficiency (chronic) (peripheral); I87.8 Other specified disorders of veins; J45.909 Unspecified asthma, uncomplicated; E11.622 Type 2 diabetes mellitus with other skin ulcer; E11.628 Type 2 diabetes mellitus with other skin complications; E11.40 Type 2 diabetes mellitus with diabetic neuropathy, unspecified; E11.621 Type 2 diabetes mellitus with foot ulcer; E11.65 Type 2 diabetes mellitus with hyperglycemia; E11.69 Type 2 diabetes mellitus with other specified complication; G43.909 Migraine, unspecified, not intractable, without status migrainosus; B95.1 Streptococcus, group B, as the cause of diseases classified elsewhere; R00.0 Tachycardia, unspecified; G89.29 Other chronic pain; M54.9 Dorsalgia, unspecified; Z89.421 Acquired absence of other right toe(s); Z98.1 Arthrodesis status; Z99.89 Dependence on other enabling machines and devices; Z56.0 Unemployment, unspecified; Z91.041 Radiographic dye allergy status; Z91.19 Patient's noncompliance with other medical treatment and regimen
CPT/HCPCS: 36600; 71045; 73630; 78315; 78582; 78999; 80048; 80053; 81003; 82803; 82948; 83036; 83605; 83735; 84484; 85025; 85027; 85610; 85730; 87040; 87070; 87075; 87076; 87077; 87185; 87186; 87205; 87641; 93970; 94640; 94640 76; 94660; 94799; 99202; 99281; 99285; A6260; A9503; A9540; A9567; C1753; J0295; J0696; J1200; J1644; J1815; J1940; J2020; J2543; J3370; J7030; J7050

== ENCOUNTER 2017-12-14 01:16 | Emergency (ER) | payer OTHER ==
[~2017-12-14] VITALS: Ht 190.5 cm; Wt 187.0 kg
[~2017-12-14 01:16] MED LIST changes: +CEFTRIAXONE2 G1 IV; +CYANOCOBALAM1000 MCG PO; +IRON325 M1 PO; +LASIX80 MG PO; +MULTI VITAMIN1 EACH PO
[2017-12-14 07:45] VITALS: BP 124/91
== END 2017-12-14 07:48 ==
LOC: EME → EDBD 01:16 → EME 01:16
DX: M25.561 Pain in right knee (principal); Z98.890 Other specified postprocedural states; Z89.511 Acquired absence of right leg below knee; R00.0 Tachycardia, unspecified; E11.9 Type 2 diabetes mellitus without complications; Z79.4 Long term (current) use of insulin; Z96.41 Presence of insulin pump (external) (internal); I10 Essential (primary) hypertension; J45.909 Unspecified asthma, uncomplicated; Z86.14 Personal history of Methicillin resistant Staphylococcus aureus infection; Z79.82 Long term (current) use of aspirin
CPT/HCPCS: 73564; 99281; 99284